=== PATIENT | male | born 1990 | race Caucasian/White ===

== ENCOUNTER 2016-11-15 06:58 | Emergency (ER) | payer OTHER ==
[2016-11-15] MEDS ORDERED: Aspirin Low Dose CHEW TAB* 81 MG PO ONE (07:38)
[2016-11-15 07:55] LABS: Hematocrit 52 % (42-52); Hemoglobin 17.8 g/dl (14.0-18.0); Mean Corpuscular HGB Conc 34 g/dl (31-36); Mean Corpuscular Hemoglobin 31 pg (27-31); Mean Corpuscular Volume 92 fL (80-94); Mean Platelet Volume 9 um3 (7.4-10.4); Red Blood Count 5.72 10^6/ul (4.0-5.4); Red Cell Distribution Width 13 % (10.5-15)
--- NOTE | 2016-11-15 07:58 | RAD ---
HISTORY: Chest pain COMPARISONS: None VIEWS:1: Single frontal portable view of the chest at 7:50 AM FINDINGS: LINES AND TUBES: None. CARDIOMEDIASTINAL SILHOUETTE: The cardiomediastinal silhouette is normal for portable technique. PLEURA: The costophrenic angles are sharp. No pleural abnormalities are noted. LUNG PARENCHYMA: The lungs are clear. ABDOMEN: The upper abdomen is clear. There is no subphrenic gas. BONES AND SOFT TISSUES: No bone or soft tissue abnormalities are noted. IMPRESSION: NO ACTIVE CARDIOPULMONARY DISEASE.
[2016-11-15 08:07] LABS: Albumin 4.7 g/dL (3.2-5.2); BUN/Creatinine Ratio 8.5 (8-20); EGFR African American 85.9 (>60); EGFR Non-African American 66.8 (>60); Globulin 2.8 g/dL (2-4); Potassium 3.3 mmol/L (3.5-5.0); Total Bilirubin 1.8 mg/dL (0.2-1.0); Total Protein 7.5 g/dL (6.4-8.9)
[2016-11-15 08:09] LABS: Troponin I 0.01 ng/mL (<0.04)
[2016-11-15] MEDS ORDERED: Metoprolol Tartrate TAB* 25 MG PO ONE (08:53)
[2016-11-15 10:22] LABS: TSH (Thyroid Stimulating Horm) 1.41 mcIU/mL (0.34-5.60)
[2016-11-15 10:29] LABS: Free T4 1.09 ng/dL (0.61-1.12)
[2016-11-15] MEDS ORDERED: Ketorolac INJ* 30 MG/ML 1 ML VIAL IV PUSH ONE (12:23)
[2016-11-15 12:46] VITALS: BP 124/75
--- NOTE | 2016-11-16 10:26 | ED ---
Rebecca Smith Auryana, scribed for Nitin Nicholson MD on 11/15/16 at 0823 . HPI Chest Pain - HPI Summary HPI Summary: 26 year old male presents with intermittent left sided chest pain starting last night. He had initially believed it was due to indigestion and took Tums without any improvement. Upon waking up today, the chest pain was still present and on the way to work, reports lightheadedness with "tunnel vision", and near syncope while driving. At that time, the pain was moderate to severe. He characterizes the pain as a tightness. He also reports cough (this morning) but denies any dyspnea, dizziness, or headaches. He does report that the pain feels somewhat better when he presses his hand to the left side of his chest. He denies any abnormal activities or food yesterday. He denies any similar episodes of chest pain. He denies any significant PMHx but reports that he believes he has HTN. FHx is significant for thyroid issues but denies any history of DM, CAD/AR, or any HTN. SHx is significant for tobacco and alcohol - "reports a lot". 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 He does not have a PCP. - History of Current Complaint Chief Complaint: EDChestPainROMI Time Seen by Provider: 11/15/16 07:13 Hx Obtained From: Patient Onset/Duration: Started Hours Ago - last night, Still Present Timing: Intermittent Initial Severity: Mild Current Severity: Mild Pain Intensity: 2 Pain Scale Used: 0-10 Numeric Chest Pain Location: Discrete at: - left side of chest Character: Tightness Alleviating Factor(s): Other: - when pressure is applied to the left side of the chest with his own hand Associated Signs and Symptoms: Positive: Chest Pain, Vision Changes - "tunnel vision", Syncope - near, Lightheadedness, Cough. Negative: Headaches, Dizziness , Shortness of Breath - no dyspnea Related History: Similar Episode/Dx as: - NONE - Allergy/Home Medications Allergies/Adverse Reactions: Allergies Allergy/AdvReac Type Severity Reaction Status Date / Time No Known Allergies Allergy Verified 11/15/16 07:16 PMH/Surg Hx/FS Hx/Imm Hx Previously Healthy: No - believes he has HTN Infectious Disease History: Denies: Traveled Outside the [place] in Last 30 Days - Family History Known Family History: Positive: Other - thyroid issues Negative: Cardiac Disease, Hypertension, Diabetes - Social History Occupation: Employed Full-time Alcohol Use: Weekly Alcohol Amount: reports "a lot" Hx Substance Use: No Substance Use Type: Reports: None Hx Tobacco Use: Yes Smoking Status (MU): Light Every Day Tobacco Smoker Review of Systems Positive: Other - lightheadedness. Negative: Fever, Chills Positive: Other - "tunnel vision". Negative: Erythema ENT: Negative Negative: Sore Throat Positive: Chest Pain Positive: Cough. Negative: Shortness Of Breath - no dyspnea Gastrointestinal: Negative Negative: Abdominal Pain, Vomiting, Nausea Genitourinary: Negative Negative: dysuria, hematuria Musculoskeletal: Negative Negative: Myalgia, Edema Skin: Negative Negative: Rash Neurological: Other - no dizziness Positive: Syncope - near syncope . Negative: Headache Psychological: Normal All Other Systems Reviewed And Are Negative: Yes Physical Exam - Summary Physical Exam Summary: Constitutional: Well-developed, Well-nourished, Alert. (-) Distressed Skin: Warm, Dry HENT: Normocephalic; Atraumatic Eyes: Conjunctiva normal Neck: Musculoskeletal ROM normal neck. (-) JVD, (-) Stridor, (-) Tracheal deviation Cardio: Rhythm regular, rate normal, Heart sounds normal; Intact distal pulses; The pedal pulses are 2+ and symmetric. Radial pulses are 2+ and symmetric. (-) Murmur Pulmonary/Chest wall: Effort normal. (-) Respiratory distress, (-) Wheezes, (-) Rales Abd: Soft, (-) Tenderness, (-) Distension, (-) Guarding, (-) Rebound Musculoskeletal: (-) Edema Lymph: (-) Cervical adenopathy Neuro: Alert, Oriented x3 Psych: Mood and affect Normal. Triage Information Reviewed: Yes Vital Signs On Initial Exam: Initial Vitals Temp Pulse Resp BP Pulse Ox 98.2 F 90 20 145/107 100 11/15/16 07:00 11/15/16 07:00 11/15/16 07:00 11/15/16 07:00 11/15/16 07:00 Vital Signs Reviewed: Yes Diagnostics - Vital Signs Vital Signs Temp Pulse Resp BP Pulse Ox 11/15/16 07:00 98.2 F 90 20 145/107 100 - Laboratory Result Diagrams: 11/15/16 07:20 11/15/16 07:20 Lab Statement: Any lab studies that have been ordered have been reviewed, and results considered in the medical decision making process. - Radiology CXR Xray Interpretation: No Acute Changes Radiology Interpretation Completed By: Radiologist - EKG 07:29 EKG Interpretation: sinus rhythm @ 75 BPM, no STEMI 12:22 EKG Interpretation: ST elevation in leads II, V2-V5 consistent with J point elevation and oli Re-Evaluation - Re-Evaluation First Eval Re-Evaluation Time: 12:17 - discussed plan to discharge and follow up with cardiology and [facility] physician referral center. Change: Unchanged Comment: patient still has pain therefore we will consult Dr. Rodriguez Chest Pain Course/Dx - Course Assessment/Plan: 26 year old male presents with intermittent left sided chest pain starting last night. He had initially believed it was due to indigestion and took tums without any improvement. Upon waking up today, the chest pain was still present and on the way to work, reports lightheadedness with "tunnel vision", and near syncope while driving. At that time, the pain was moderate to severe. He characterizes the pain as a tightness. He also reports cough (this morning) but denies any dyspnea, dizziness, or headaches. He does report that the pain feels somewhat better when he presses his hand to the left side of his chest. He denies any abnormal activities or food yesterday. He denies any similar episodes of chest pain. He denies any significant PMHx but reports that he believes he has HTN. FHx is significant for thyroid issues but denies any history of DM, CAD/AR, or any HTN. SHx is significant for tobacco and alcohol - "reports a lot". 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 He does not have a PCP. Blood work shows RBC of 5.72, d-dimer <200, potassium 3.3, creatinine 1.29, lactic acid 1.2, total bilirubin 1.80, AST 12, troponin 0.01, TSH 1.41, and Free T4 1.09. Troponin #2 0.01. CXR NAD. EKG - sinus rhythm @ 75 BPM, no STEMI. Repeat EKG - ST elevation in leads II, V2-V5 consistent with J point elevation and early repolarization. Patient will be discharged home and given follow up with cardiology and [facility] physician referral. I discussed the case with Dr. Rodriguez due to pain before discharge. He agrees with discharge patient home with follow up to cardiology and recommend treatment of chest pain with NSAIDs. Patient is agreeable with plan. DDx: Pulmonary Embolism, pericarditis, PNA, muscle strain, hypertensive urgency. Dx: chest pain unspecified, hypertension, alcohol abuse, and tobacco use disorder. - Chest Pain Differential Diagnosis/HQI/PQRI: Pulmonary Embolism, Other: - pericarditis, PNA , muscle strain, hypertensive urgency - Diagnoses Provider Diagnoses: Chest pain, unspecified, Hypertension, Tobacco use disorder, Alcohol abuse - Provider Notifications Discussed Care Of Patient With: Juan Rodriguez Time Discussed With Above Provider: 12:35 - agrees with discharge patient home with follow up to cardiology and recommend treatment of chest pain with NSAIDs. Discharge - Discharge Plan Condition: Stable Disposition: HOME Prescriptions: Metoprolol Tartrate TAB* [Lopressor TAB*] 12.5 mg PO BID #60 tab Patient Education Materials: Chest Pain (ED), How to Stop Smoking (ED), Abuse of Alcohol (ED), Hypertension (ED), Safe Use of NSAIDs (ED) Forms: *Work Release Referrals: [facility] PHYSICIAN REFERRAL [Outside] - 2 Days Juan Rodriguez MD [Medical Doctor] - 2 Days Additional Instructions: RETURN TO THE EMERGENCY DEPARTMENT FOR CHANGING OR WORSENING SYMPTOMS. The documentation as recorded by the Rebecca jacobs Auryana accurately reflects the service I personally performed and the decisions made by , Nitin Nicholson MD.
== END 2016-11-15 13:16 | disposition home or self-care (01) ==
LOC: ED 06:58
DX: R07.9 Chest pain, unspecified (principal); I10 Essential (primary) hypertension; R55 Syncope and collapse; H53.489 Generalized contraction of visual field, unspecified eye; R05 Cough; F10.129 Alcohol abuse with intoxication, unspecified; F17.210 Nicotine dependence, cigarettes, uncomplicated
CPT/HCPCS: 36415; 71010; 80053; 80074; 83605; 84439; 84443; 84484; 85025; 85379; 93005; 96374; 99283; A9270-GY; J1885

== ENCOUNTER 2016-12-13 13:30 | Emergency (ER) | payer OTHER ==
[2016-12-13] MEDS ORDERED: NS 0.9% 1000 ML* 1,000 ML IV ONE (18:28)
[2016-12-13] MEDS ORDERED: Acetaminophen TAB* 325 MG PO ONE (18:28)
--- NOTE | 2016-12-13 18:29 | ED ---
Edward Smith Alfonso, scribed for Hedy Tan MD on 12/13/16 at 1806 . Dizziness - HPI Summary HPI Summary: This patient is a 26 year old M presenting to [facility] accompanied by mother with a chief complaint of episodic dizziness since one month ago. The CC is described as lightheadedness. He states I was in the truck and felt weird like my blood pressure was going up but it wasnt, then I ate lunch sitting down and all of a sudden I was light headed and had a pressure on my chest lasting approximately one hour. The patient rates the pain 3/10 in severity. Symptoms aggravated by standing up and alleviated by spontaneous resolution. He reports taking Metoprolol 12.5 mg BID. Patient reports near syncope (tunnel vision and hearing loss which resolved spontaneously), high blood pressure (yesterday 175/ 120), feeling like I got punched in the face, headache, CP (tightness and pressure), palpitations (pounding), and sunburn. Patient denies loss of appetite , change in weight, dehydration, melena, and blood in the stools. Pt reports ETOH abuse (30-60 beers in a weekend but reports he abruptly stopped 1 month ago. Pt states he has not drank at all in the past 4 days). Tobacco abuse disorder (smokeless tobacco). Denies substance use. Denies recent travels. Denies recent sick contacts. Pt states these sx started approx 1 month ago when was evaluated at [facility]. Pt states was discharged on Metoprolol. Pt was seen by PCP and cardiology in follow-up. Cardiology instructed pt to take metoprolol prn for htn. Pt states took last evening and again this morning. Pt called his PCP today to schedule a follow-up -scheduled Thur. Pt has not called his cardiology. 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 He presented to [facility] on 11/15/16 with diagnoses of primary Chest pain, unspecified , Hypertension, Tobacco use disorder, Alcohol abuse. He reports a PCP scheduled for in 3 days. Pt and mother expressing concern because pt's sister with primary brain CA and second sibling with pituitary tumor. Patients medication reviewed this visit. - History Of Current Complaint Chief Complaint: EDDizziness Stated Complaint: CHEST PAINS DIZZY Time Seen by Provider: 12/13/16 17:51 Hx Obtained From: Patient, Family/[employer] Insurance Claim Examiner - Mother Onset/Duration: Still Present Timing: Weeks - 1 month Severity Initially: Moderate Severity Currently: Moderate Character: Lightheaded Aggravating Factor(s): Position Change - standing up Alleviating Factor(s): Other - Spontaneous Associated Signs And Symptoms: Positive: Other: - Patient reports near syncope ( tunnel vision and hearing loss which resolved spontaneously), high blood pressure (yesterday 175/120), feeling like I got punched in the face, headache , CP (tightness and pressure), palpitations (pounding), and sunburn. Patient denies loss of appetite, change in weight, dehydration, melena, and blood in the stools.. Negative: Nausea, Vomiting, Diaphoresis, Palpitations, Fever, Chills - Allergies/Home Medications Allergies/Adverse Reactions: Allergies Allergy/AdvReac Type Severity Reaction Status Date / Time No Known Allergies Allergy Verified 11/15/16 07:16 PMH/Surg Hx/FS Hx/Imm Hx Previously Healthy: Yes Endocrine/Hematology History: Denies: Hx Anticoagulant Therapy Sensory History: Denies: Hx Deafness Opthamlomology History: Denies: Hx Legally Blind - Surgical History Surgery Procedure, Year, and Place: wisdom teeth Infectious Disease History: No Infectious Disease History: Denies: Traveled Outside the [place] in Last 30 Days - Family History Known Family History: Positive: Other - thyroid issues and brain tumors. Negative: Cardiac Disease, Hypertension, Diabetes - Social History Occupation: Employed Full-time Lives: With Family Alcohol Use: Weekly Alcohol Amount: previous drank heavily - stopped 1 month ago Hx Substance Use: No Substance Use Type: Reports: None Hx Tobacco Use: Yes Smoking Status (MU): Former Smoker Type: Smokeless Tobacco Review of Systems Constitutional: Negative Eyes: Negative ENT: Negative Positive: Palpitations - pounding, Chest Pain - tightness and pressure, Other - Positive high blood pressure (yesterday 175/120) Respiratory: Negative Gastrointestinal: Negative Positive: Other - Negative loss of appetite, change in weight, dehydration, melena, and blood in the stools. Genitourinary: Negative Musculoskeletal: Negative Positive: Other - Positive sunburn Neurological: Other - Positive dizziness, near syncope (tunnel vision and hearing loss which resolved spontaneously), feeling like I got punched in the face, headache, Psychological: Normal All Other Systems Reviewed And Are Negative: Yes Physical Exam Triage Information Reviewed: Yes Vital Signs On Initial Exam: Initial Vitals Temp Pulse Resp BP Pulse Ox 99.0 F 67 20 149/92 100 12/13/16 13:31 12/13/16 13:31 12/13/16 13:31 12/13/16 13:31 12/13/16 13:31 Vital Signs Reviewed: Yes Appearance: Positive: Well-Appearing, No Pain Distress, Well-Nourished Skin: Positive: Warm, Skin Color Reflects Adequate Perfusion, Cold, Other - diffuse sunburn - no rash Head/Face: Positive: Normal Head/Face Inspection Eyes: Positive: Normal, EOMI, CELINA ENT: Positive: Normal ENT inspection, Hearing grossly normal, Pharynx normal, TMs normal Neck: Positive: Supple, Nontender, No Lymphadenopathy Respiratory/Lung Sounds: Positive: Clear to Auscultation, Breath Sounds Present. Negative: Wheezes Cardiovascular: Positive: Normal, RRR, Other - no bruits. Negative: Murmur Abdomen Description: Positive: Nontender, No Organomegaly, Soft Bowel Sounds: Positive: Present Musculoskeletal: Positive: Normal, Strength/ROM Intact Neurological: Positive: Normal, Sensory/Motor Intact, Alert, Oriented to Person Place, Time Psychiatric: Positive: Normal AVPU Assessment: Alert - Chavo Coma Scale Best Eye Response: 4 - Spontaneous Best Motor Response: 6 - Obeys Commands Best Verbal Response: 5 - Oriented Coma Scale Total: 15 Diagnostics - Vital Signs Vital Signs Temp Pulse Resp BP Pulse Ox 12/13/16 17:49 99.5 F 75 17 138/76 100 12/13/16 17:46 15 12/13/16 17:44 138/76 12/13/16 17:03 98.4 F 72 20 141/90 100 12/13/16 15:00 98.3 F 68 20 124/79 99 12/13/16 13:31 99.0 F 67 20 149/92 100 - Laboratory Result Diagrams: 12/13/16 19:05 12/13/16 19:05 Lab Statement: Any lab studies that have been ordered have been reviewed, and results considered in the medical decision making process. - Radiology CXR Radiology Interpretation Completed By: Radiologist - NO EVIDENCE FOR ACTIVE CARDIOPULMONARY DISEASE. - CT Brain CT Interpretation Completed By: Radiologist - NO EVIDENCE FOR ACUTE INTRACRANIAL ABNORMALITY. - EKG 1337 Cardiac Rate: NL EKG Rhythm: Sinus Rhythm EKG Interpretation: NAC Re-Evaluation - Re-Evaluation First Eval Change: Improved - ABBASI slightly improved reviewed CT and CXR with pt Not orthostatic awaiting labs Second Eval Change: Improved - labs wnl Will discharged Dizzy Course/Dx - Course Assessment/Plan: Pt presents with reports of feeling heart pounding with episodes of tunnel vision and mild SOB - intermittent x 1 month. Pt was given metoprolol for bp. Pt previously drank heavily - now with dramatic decrease x1 month. Pt with mild ABBASI at time of eval - Diagnoses Provider Diagnoses: Episode of hypertension, Lightheadedness Discharge - Discharge Plan Condition: Stable Disposition: HOME Patient Education Materials: Hypertension (ED), Lightheadedness (ED) Referrals: Jose G STONE,Vincent Westbrook [Primary Care Provider] - Additional Instructions: - stay well hydrated. Continue to drink plenty of non-alcoholic, non-caffinated beverages - work to decrease chew tobacco/nicotine use - take metoprolol as previously prescribed - call your thresher broomcorn tomorrow to schedule a follow-up appointment this week - keep your appointment with your primary as scheduled this week - keep a journal of your blood pressure and your heart rate call your doctor, 911, or return with questions or concerns The documentation as recorded by the Edward jacobs Alfonso accurately reflects the service I personally performed and the decisions made by me, Hedy Tan MD.
[2016-12-13 19:17] LABS: Hematocrit 49 % (42-52); Hemoglobin 16.9 g/dl (14.0-18.0); Mean Corpuscular HGB Conc 35 g/dl (31-36); Mean Corpuscular Hemoglobin 31 pg (27-31); Mean Corpuscular Volume 90 fL (80-94); Mean Platelet Volume 10 um3 (7.4-10.4); Red Blood Count 5.43 10^6/ul (4.0-5.4); Red Cell Distribution Width 13 % (10.5-15); White Blood Count 9.1 10^3/ul (3.5-10.8)
[2016-12-13 19:19] LABS: Urine Bilirubin Negative (Negative); Urine Glucose Negative (Negative); Urine Nitrite Negative (Negative)
--- NOTE | 2016-12-13 19:22 | RAD ---
INDICATION: Headache, near syncope. COMPARISON: There are no prior studies available for comparison. TECHNIQUE: Contiguous axial sections of the brain were obtained from the skull base to the vertex without contrast. FINDINGS: The ventricles, cisterns and sulci are within normal limits. No significant focal abnormality or mass effect is seen. There is no evidence for hemorrhage. No significant focal osseous abnormality is seen. The visualized portion of the paranasal sinuses and mastoid air cells appear clear. IMPRESSION: NO EVIDENCE FOR ACUTE INTRACRANIAL ABNORMALITY.
--- NOTE | 2016-12-13 19:23 | RAD ---
INDICATION: Near syncope. COMPARISON: Comparison is made with a prior chest x-ray study from November 15, 2016. TECHNIQUE: Dual-energy PA and lateral views of the chest were obtained. FINDINGS: The heart is within normal limits in size. Mediastinal and hilar contours appear within normal limits. The lungs are clear. No pleural effusion is present. IMPRESSION: NO EVIDENCE FOR ACTIVE CARDIOPULMONARY DISEASE.
[2016-12-13 19:35] LABS: Albumin 4.7 g/dL (3.2-5.2); BUN/Creatinine Ratio 14.7 (8-20); Calcium 9.6 mg/dL (8.6-10.3); EGFR African American 122.3 (>60); EGFR Non-African American 95.1 (>60); Globulin 2.7 g/dL (2-4); Magnesium 2.2 mg/dL (1.9-2.7); Potassium 4.3 mmol/L (3.5-5.0); Total Bilirubin 0.4 mg/dL (0.2-1.0); Total Protein 7.4 g/dL (6.4-8.9)
[2016-12-13 19:53] LABS: TSH (Thyroid Stimulating Horm) 1.23 mcIU/mL (0.34-5.60)
[2016-12-13 20:04] VITALS: BP 102/55
== END 2016-12-13 20:08 | disposition home or self-care (01) ==
LOC: ED 13:30
DX: I10 Essential (primary) hypertension (principal); R42 Dizziness and giddiness; Z87.891 Personal history of nicotine dependence
CPT/HCPCS: 36415; 70450; 71020; 80053; 81003; 83735; 84443; 84484; 85025; 93005; 96360; 99283; A9270-GY

== ENCOUNTER 2018-04-19 14:48 | Emergency (ER) | payer OTHER ==
--- NOTE | 2018-04-19 14:52 | UC ---
Cardiac HPI - HPI Summary HPI Summary: 28 yo male presents with palpitations. He tells me that last night he was lying in bed reading a book when he felt his heart skipping a beat intermittently for about 20 minutes. This resolved spontaneously. He had no associated SOB or chest pain. This morning he was anxious about the palpitations he felt last night and thinks he felt them again while at work this morning that last < 30minutes. He had no associated SOB or chest pain. Currently he has no symptoms and feels fine. Denies recent illness, SOB, chest pain, abdominal pain, n/v. - History of Current Complaint Stated Complaint: HEART PALPITATIONS Time Seen by Provider: 04/19/18 14:52 Hx Obtained From: Patient Onset/Duration: Sudden Onset Current Severity: None - Allergy/Home Medications Allergies/Adverse Reactions: Allergies Allergy/AdvReac Type Severity Reaction Status Date / Time No Known Allergies Allergy Verified 04/19/18 14:58 Home Medications: Home Medications LORazepam [Ativan 1 MG TAB] 1 mg PO DAILY PRN 04/19/18 [History Confirmed ] Sertraline* [Zoloft*] 25 mg PO DAILY 04/19/18 [History Confirmed 04/19/18] PMH/Surg Hx/FS Hx/Imm Hx Psychological History: Anxiety Other History Of: Negative For: Anticoagulant Therapy - Surgical History Surgical History: Yes Surgery Procedure, Year, and Place: wisdom teeth - Family History Known Family History: Positive: Other - thyroid issues and brain tumors. Negative: Cardiac Disease, Hypertension, Diabetes - Social History Occupation: Employed Full-time Lives: With Family Alcohol Use: Weekly Alcohol Amount: previous drank heavily - stopped 1 month ago Substance Use Type: None Smoking Status (MU): Former Smoker Type: Smokeless Tobacco Household Exposure Type: Cigarettes Review of Systems All Other Systems Reviewed And Are Negative: Yes Constitutional: Positive: Negative Skin: Positive: Negative Eyes: Positive: Negative ENT: Positive: Negative Respiratory: Positive: Negative Cardiovascular: Positive: Other - palpitations Gastrointestinal: Positive: Negative Neurovascular: Positive: Negative Neurological: Positive: Negative Psychological: Positive: Negative Physical Exam - Summary Physical Exam Summary: GENERAL: NAD. WDWN. No pain distress. SKIN: No rashes, sores, lesions, or open wounds. NECK: Supple. Nontender. No lymphadenopathy. CHEST: CTAB. No r/r/w. No accessory muscle use. Breathing comfortably and in no distress. CV: RRR. Without m/r/g. Pulses intact. Cap refill <2seconds NEURO: Alert. PSYCH: Age appropriate behavior. Triage Information Reviewed: Yes Vital Signs: Vital Signs: Temp Pulse Resp BP Pulse Ox 99 F 76 18 145/87 100 04/19/18 15:00 04/19/18 15:00 04/19/18 15:00 04/19/18 15:00 04/19/18 15:00 Vital Signs Reviewed: Yes - Assessment/Plan Course Of Treatment: EKG: NSR 77bpm. Early repol patten V2 and V3. No ST changes or t wave inversions as read by Dr. Lehman. Discussed results with pt. I suspect his palpitations are related to anxiety, however cannot rule out an underlying paroxysmal abnormality and therefore recommended that he seek a more appropriate work up and evaluation in the ED. - Clinical Impression Provider Diagnosis: Palpitations, Anxiety Discharge - Sign-Out/Discharge Documenting (check all that apply): Patient Departure All imaging exams completed and their final reports reviewed: No Studies - Discharge Plan Condition: Stable Disposition: HOME-RECOMMEND TO ED Referrals: Jose G STONE,Vincent Westbrook [Primary Care Provider] - Additional Instructions: The provider that examined you today recommends that you go to the ER for further evaluation and proper work up of your palpitations - Billing Disposition and Condition Condition: STABLE Disposition: Home-Recommend to ED
[2018-04-19 15:04] VITALS: BP 145/87
== END 2018-04-19 15:26 | disposition home health service (06) ==
LOC: UCEAST 14:48
DX: F41.9 Anxiety disorder, unspecified (principal); R00.2 Palpitations; Z79.899 Other long term (current) drug therapy; Z87.891 Personal history of nicotine dependence
CPT/HCPCS: 93005; 99212; G0463